=== PATIENT | female | born 1990 | race Caucasian/White ===

== ENCOUNTER 2016-08-19 02:14 | Emergency (ER) | payer OTHER ==
[~2016-08-19] VITALS: Ht 180.3 cm; Wt 72.6 kg
[~2016-08-19 02:14] MED LIST: BC PILL; CLAR-19 PO; CYCL10TA9 PO; NAPR-243 PO
--- OUTSIDE RECORDS SUMMARY | 2016-08-19 02:23 | XMS REPORT | Continuity of Care Document ---
Author Author [facility] Address Unknown Phone Unavailable Allergies Medications Problems Date Dx Coded Attending Type Code Diagnosis Diagnosed By 12/28/2007 TERRY ANN DO V05.8 GARDASIL, SHINGLES, OTHER SPECIFIED DISEASE 05/16/2008 TERRY ANN DO 465.9 UPPER RESPIRATORY INFECTION 08/21/2009 TERRY ANN DO 626.6 heavy bleeding between periods (metrorrhagia) 08/21/2009 TERYR ANN DO 729.5 PAIN IN LIMB 09/29/2009 TERRY ANN DO 724.5 BACKACHE, UNSPECIFIED 04/30/2010 TERRY ANN DO 075 MONONUCLEOSIS 04/30/2010 TERRY ANN DO 382.00 OTITIS MEDIA ACUTE SUPPURATIVE 05/23/2010 TERRY ANN DO 461.9 SINUSITIS ACUTE 05/23/2010 TERRY ANN DO 780.79 MALAISE AND FATIGUE 05/23/2010 TERRY ANN DO V01.79 CONTACT WITH OR EXPOSURE TO OTHER VIRAL DISEASES Procedures Results Encounters ACCT No. Visit Date/Time Discharge Status Pt. Type Provider Facility Loc./Unit Complaint [id number] 05/23/2010 13:27:00 05/23/2010 23: 59:59 CLS Outpatient TERRY ANN DO
[2016-08-19] MEDS ORDERED: PRD50T PO (02:28)
[2016-08-19] MEDS ORDERED: DESO1TAB35 PO (02:28)
[2016-08-19] MEDS ORDERED: GUAI-370 PO (02:28)
--- NOTE | 2016-08-19 02:28 | ED Headache ---
General Stated Complaint: HEADACHE Source: patient Exam Limitations: no limitations History of Present Illness Time seen by provider: 02:23 Initial Comments Patient complains of severe throbbing frontal headache since midnight. It has progressively worsened. She denies head trauma. She has had nasal congestion with greenish yellow rhinorrhea for several days. She denies fevers or neck stiffness. She denies photophobia. Similar headache a few months ago. Her doctor thought she was dehydrated then. Allergies and Home Medications Allergies Coded Allergies: erythromycin base (Unverified Adverse Reaction, Unknown, 08/19/16) Uncoded Allergies: SPEARMINT (Adverse Reaction, Unknown, 08/19/16) Home Medications Amoxicillin/Potassium Clav 1 Each Tablet 10Days 1 EACH PO BID Prescribed by: BEST ROUSE on 08/19/16316 Desogestrel-Ethinyl Estradiol 1 Each Tablet #28 1 TAB PO DAILY (Reported) Guaifenesin/Pseudoephedrne HCl 1 Each Tab.er.12h 2 TAB PO Q12H (Reported) Prednisone 50 Mg Tab 50 MG PO DAILY (Reported) Sodium Chloride 44 Ml [place] #1 1 SPRAY NS TID Prescribed by: BEST ROUSE on 08/19/16316 Tramadol HCl 50 Mg Tablet #14 1-2 TAB PO Q6H PRN PRN PAIN Prescribed by: BEST ROUSE on 08/19/16316 Constitutional: dizzinessNo fever Ears, Nose, Mouth, Throat: nose discharge Respiratory: No cough Cardiovascular: no symptoms reported Gastrointestinal: no symptoms reported All Other Systems Reviewed Negative Unless Noted: Yes Past Rpkdozy-Hltagf-Juzvcc Hx Patient Social History Recent Foreign Travel: No Contact w/Someone Who Travel: No Physical Exam Vital Signs Vital Sign - Last 12Hours 08/19/16 02:23 Temp 97.0 Pulse 84 Resp 18 B/P 137/85 Capillary Refill : General Appearance: WD/WN no apparent distress HEENT: PERRL/EOMI pharynx normal Neck: supple Cardiovascular: regular rate, rhythm Respiratory: normal breath sounds Gastrointestinal: soft Extremities: normal inspection Psychiatric: alert oriented x 3 [place] Nerves: normal hearing normal speech PERRL Coordination/Gait: normal gait Motor/Sensory: no motor deficit Skin: normal color warm/dry Progress/Results/Core Measures Results/Orders Lab Results Laboratory Tests Test 08/19/16 02:40 Range/Units Basophils # (Auto) 0.0 0.0-0.1 10^3/uL Basophils (%) (Auto) 0 0-10 % Eosinophils # (Auto) 0.0 0.0-0.3 10^3/uL Eosinophils (%) (Auto) 0 0-10 % Hematocrit 39 35-52 % Hemoglobin 13.4 11.5-16.0 G/DL Lymphocytes # (Auto) 2.5 1.0-4.0 X 10^3 Lymphocytes (%) (Auto) 16 12-44 % Mean Corpuscular Hemoglobin 30 25-34 PG Mean Corpuscular Hemoglobin Concent 34 32-36 G/DL Mean Corpuscular Volume 88 80-99 FL Mean Platelet Volume 10.7 H 7.4-10.4 FL Monocytes # (Auto) 1.4 H 0.0-1.0 X 10^3 Monocytes (%) (Auto) 9 0-12 % Neutrophils # (Auto) 11.4 H 1.8-7.8 X 10^3 Neutrophils (%) (Auto) 75 42-75 % Platelet Count 276 130-400 10^3/uL Red Blood Count 4.49 4.35-5.85 10^6/uL Red Cell Distribution Width 12.7 10.0-14.5 % White Blood Count 15.3 H 4.3-11.0 10^3/uL My Orders Orders-BEST ROUSE MD Ketorolac Injection (Toradol Injection) (08/19/16 02:45) Ns Iv 1000 Ml (Sodium Chloride 0.9%) (08/19/16 02:45) Promethazine Injection (Phenergan Injec (08/19/16 02:45) Diphenhydramine Injection (Benadryl Inje (08/19/16 02:45) Ct Head Wo (08/19/16 02:34) Basic Metabolic Panel (08/19/16 02:38) Cbc With Automated Diff (08/19/16 02:38) Saline Lock/Iv-Start (08/19/16 02:53) Manual Differential (08/19/16 02:40) Amoxicillin/Clavulanate Tablet (Augmenti (08/19/16 03:15) Medications Given in ED Current Medications Medications Dose Ordered Sig/Lisa Route Start Time Stop Time Status Last Admin Dose Admin Diphenhydramine HCl 25 mg ONCE ONCE IVP 08/19/16 02:45 08/19/16 02:46 DC 08/19/16 02:48 25 MG Ketorolac Tromethamine 30 mg ONCE ONCE IVP 08/19/16 02:45 08/19/16 02:46 DC 08/19/16 02:45 30 MG Promethazine HCl 25 mg ONCE ONCE IVP 08/19/16 02:45 08/19/16 02:46 DC 08/19/16 02:48 25 MG Vital Signs/I&O Vital Sign - Last 12Hours 08/19/16 02:23 Temp 97.0 Pulse 84 Resp 18 B/P 137/85 Progress Note : Time: 03:13 Progress Note Feels much better after meds for discharge Departure Impression Impression: Primary Impression: Sinusitis, acute Disposition: 01 HOME, SELF-CARE Condition: Stable Departure-Patient Inst. Decision time for Depature: 03:30 Referrals: [facility] (PCP/Family) Primary Care Physician Patient Instructions: Headache, Adult Scripts Sodium Chloride (Nasal [place])44 Ml Spray1 [place] NS TID #1 SPRAY Prov:BEST ROUSE MD 08/19/16 Tramadol HCl 50 Mg Tablet1-2 Tab PO Q6H PRN PAIN #14 TAB Prov:BEST ROUSE MD 08/19/16 Amoxicillin/Potassium Clav (Augmentin 875-125 Tablet)1 Each Tablet1 Each PO BID 10 Days Prov:BEST ROUSE MD 08/19/16 BEST ROUSE MD Aug 19, 2016 02:28
[2016-08-19] MEDS ORDERED: KETOROLAC 30 MG/ML VIAL IVP ONE (02:45)
[2016-08-19] MEDS ORDERED: PROMETHAZINE INJ 25 MG/ML (PHENERGAN) AMP IVP ONE (02:45)
[2016-08-19] MEDS ORDERED: diphenhydrAMINE 50 MG/ML INJ (BENADRYL) IVP ONE (02:45)
[2016-08-19] MEDS ORDERED: NS IV 1000 ML 1,000 ML IV SCH (02:45)
[2016-08-19 02:56] LABS: BASOPHILS % (AUTO) 0 % (0-10); EOSINOPHILS % (AUTO) 0 % (0-10); LYMPHOCYTES # (AUTO) 2.5 X 10^3 (1.0-4.0); LYMPHOCYTES % (AUTO) 16 % (12-44); MEAN CORPUSCULAR HEMOGLOBIN 30 PG (25-34); MEAN CORPUSCULAR HGB CONC 34 G/DL (32-36); MEAN CORPUSCULAR VOLUME 88 FL (80-99); MEAN PLATELET VOLUME 10.7 FL (7.4-10.4); MONOCYTES # (AUTO) 1.4 X 10^3 (0.0-1.0); MONOCYTES % (AUTO) 9 % (0-12); NEUTROPHILS # (AUTO) 11.4 X 10^3 (1.8-7.8); NEUTROPHILS % (AUTO) 75 % (42-75); PLATELET COUNT 276 10^3/uL (130-400); RED BLOOD COUNT 4.49 10^6/uL (4.35-5.85); RED CELL DISTRIBUTION WIDTH 12.7 % (10.0-14.5); WHITE BLOOD COUNT 15.3 10^3/uL (4.3-11.0)
[2016-08-19] MEDS ORDERED: AUGMENTIN 875 MG TAB (AMOXICILLIN/CLAVULANATE) PO SCH (03:15)
[2016-08-19] MEDS ORDERED: AMOX-358 PO (03:17)
[2016-08-19] MEDS ORDERED: TRAM50TA2 PO (03:17)
[2016-08-19] MEDS ORDERED: SODI44SP4 NS (03:17)
[2016-08-19 03:20] LABS: ANION GAP 14 MMOL/L (5-14); BLOOD UREA NITROGEN 11 MG/DL (7-18); BUN/CREATININE RATIO 14; CALCIUM 8.7 MG/DL (8.5-10.1); CARBON DIOXIDE 19 MMOL/L (21-32); CHLORIDE 106 MMOL/L (98-107); CREATININE SERUM 0.79 MG/DL (0.60-1.30); GFR ESTIMATED > 60; GLUCOSE 97 MG/DL (70-105); POTASSIUM 3.6 MMOL/L (3.6-5.0); SODIUM 139 MMOL/L (135-145)
[2016-08-19 03:27] LABS: BAND NEUTROPHILS 0 %; BASOPHILS % (MANUAL) 0 %; EOSINOPHILS % (MANUAL) 0 %; LYMPHOCYTES % (MANUAL) 28 %; NEUTROPHILS % (MANUAL) 68 %
[2016-08-19 04:05] VITALS: BP 118/71
--- NOTE | 2016-08-19 07:48 | Diagnostic Imaging Report ---
PROCEDURE: CT head without contrast. TECHNIQUE: Multiple contiguous axial images were obtained through the brain without the use of intravenous contrast. INDICATION: Headache There are no prior studies available for comparison. There is no mass, shift of the midline or hemorrhage to suggest an acute intracranial abnormality. The ventricles are not abnormally dilated. The bone windows show no evidence for a fracture or for a destructive lesion. The orbits are symmetrical and within normal limits. The sinuses were not visualized in their entirety. Where visualized, the sinuses are generally clear. There is a very small amount of fluid in the right sphenoid sinus. IMPRESSION: 1. There is no evidence for an acute intracranial abnormality. 2. If clinical concern regarding an underlying abnormality persists, then MRI would be recommended for further study. Dictated by: Dictated on workstation # [id number]
== END 2016-08-19 04:05 | disposition home or self-care (01) ==
LOC: EDUNIT# 02:14 → ER 02:19
DX: J01.90 Acute sinusitis, unspecified (principal)
CPT/HCPCS: 36415; 70450; 80048; 85007; 85027; 96361; 96374; 96375